=== PATIENT | male | born 1990 | race African-American/Black ===

== ENCOUNTER 2024-11-29 14:26 | Inpatient (IN) | payer OTHER ==
[2024-11-29 15:15] VITALS: BMI 31.9
[2024-11-29] MEDS ORDERED: POLYETHYLENE GLYCOL (HEALTHYLAX) 3350 17 GM PACKET PO PRN (15:44)
[2024-11-29] MEDS ORDERED: BENZOCAINE/MENTHOL (CHLORASEPTIC ) LOZENGE MM PRN (15:44)
[2024-11-29] MEDS ORDERED: NALOXONE (NARCAN) HCL 4 MG/0.1 ML SPRAY NS PRN (15:44)
[2024-11-29] MEDS ORDERED: MAGNESIUM HYDROX 2400MG/30ML ORAL SUSPENSION 30 ML CUP PO PRN (15:44)
[2024-11-29] MEDS ORDERED: LOPERAMIDE HCL 2 MG CAPSULE PO PRN (15:44)
[2024-11-29] MEDS ORDERED: BENZONATATE 200 MG CAPSULE PO PRN (15:44)
[2024-11-29] MEDS ORDERED: guaiFENesin 600 MG TABLET.ER (FP) PO PRN (15:44)
[2024-11-29] MEDS: INSULIN ASPART SLIDING SCALE (NOVOLOG) 1 VIAL SQ SCH (17:33)
[2024-11-29] MEDS: NICOTINE POLACRILEX 2 MG GUM BUC PRN (19:07)
[2024-11-29] MEDS ORDERED: TUBERCULIN PPD 5 TU/0.1ML VIAL ID ONE (19:10)
[2024-11-29] MEDS: hydrOXYzine PAMOATE 25 MG CAPSULE (FP) PO PRN (20:38)
[2024-11-29] MEDS: ACETAMINOPHEN 325 MG TABLET (FP) PO PRN (20:38)
[2024-11-29] MEDS: MELATONIN 5 MG TABLETS PO SCH (21:04)
[2024-11-29] MEDS: levETIRAcetam 500 MG TABLET (FP) PO SCH (21:04)
[2024-11-29] MEDS: APIXABAN 5 MG TABLET PO SCH (21:04)
[2024-11-29] MEDS: THIAMINE 100 MG TABLET PO SCH (21:04)
[2024-11-29] MEDS: INSULIN GLARGINE (LANTUS) 100 UNITS/ML UNITS SQ SCH (21:05)
[2024-11-30 01:48] LABS: URINE APPEARANCE CLEAR; URINE BILIRUBIN NEGATIVE (NEGATIVE); URINE COLOR YELLOW; URINE GLUCOSE (UA) NEGATIVE (NEGATIVE); URINE KETONE NEGATIVE (NEGATIVE); URINE LEUK ESTERASE NEGATIVE (NEGATIVE); URINE NITRITE NEGATIVE (NEGATIVE); URINE PROTEIN NEGATIVE (NEGATIVE); URINE UROBILINOGEN 0.2 mg/dL (0.2-1.0)
[2024-11-30] MEDS: HYDROXYUREA 500 MG CAPSULE PO SCH (09:39)
[2024-11-30] MEDS: LISINOPRIL 20 MG TABLET PO SCH (09:39)
[2024-11-30] MEDS: PRENATAL VITAMINS W/ FOLIC ACID TABLET (FP) PO SCH (09:39)
[2024-11-30] MEDS: DIVALPROEX SODIUM 500 MG TABLET E.C. PO SCH (09:39)
[2024-11-30] MEDS: BICTEGRAV/EMTRICIT/TENOFOV (BIKTARVY) 50-200-25 MG TABLET PO SCH (09:39)
[2024-11-30 10:03] LABS: HEMATOCRIT 35.6 % (40.1-51.0); HEMOGLOBIN 11.3 g/dL (13.7-17.5); MCHC 31.7 g/dl (32.3-36.5); MEAN CELL VOLUME 74.3 fl (79.0-92.2); PLATELET COUNT 241 x10^3/uL (163-337); RDW 20.2 % (12.0-15.6)
[2024-11-30 11:29] LABS: ALBUMIN 3.1 g/dl (3.4-5.0); BLOOD UREA NITROGEN 11.7 mg/dL (7-18); CALCIUM 9.1 mg/dL (8.5-10.1)
[2024-11-30 11:32] LABS: CREATININE 0.9 mg/dL (0.55-1.3)
[2024-11-30 11:33] LABS: BILIRUBIN,TOTAL 0.2 mg/dL (0.2-1); TOT PROT 6.8 g/dl (6.4-8.2)
[2024-11-30 11:49] LABS: HCV DIAGNOSTIC IN-HOUSE W/RFLX NON-REACTIVE (NONREACTIVE)
[2024-11-30 12:24] LABS: SYPHILIS W/ RPR CONF REACTIVE (NONREACTIVE)
[2024-11-30] MEDS: SERTRALINE HCL 25 MG TABLET (FP) PO SCH (14:14)
[2024-11-30] MEDS: risperiDONE 0.5 MG TABLET PO SCH (14:14)
[2024-11-30] MEDS: MAG HYDROX/AL HYDROX/SIMETH 30 ML UNIT-DOSE CUP PO PRN (14:15)
[2024-11-30] MEDS: diazePAM 5 MG TABLET PO ONE (20:12)
[2024-11-30] MEDS: busPIRone HCL 10 MG TABLET (FP) PO SCH (21:39)
[2024-11-30] MEDS: BENZTROPINE MESYLATE 0.5 MG TABLET (FP) PO SCH (21:39)
[2024-12-01 05:47] VITALS: RESP 16
[2024-12-01 17:45] VITALS: BP 133/79; PULSE 112; TEMP 97.3
== END 2024-12-01 18:20 | disposition left against medical advice (07) | DRG 770 ==
LOC: YASAS 14:26 → Y3W 17:09
PROVIDERS: ADMIT Psychiatry & Neurology Pain Medicine; ATTEND Psychiatry & Neurology Pain Medicine
PROC: HZ42ZZZ Group Counseling for Substance Abuse Treatment, Cognitive-Behavioral (ICD-10-PCS; principal; 2024-11-29)
DX: F10.10 Alcohol abuse, uncomplicated (principal); F17.210 Nicotine dependence, cigarettes, uncomplicated; F31.9 Bipolar disorder, unspecified; F41.9 Anxiety disorder, unspecified; F25.9 Schizoaffective disorder, unspecified; Z21 Asymptomatic human immunodeficiency virus [HIV] infection status; E10.9 Type 1 diabetes mellitus without complications; Z79.4 Long term (current) use of insulin; G40.909 Epilepsy, unspecified, not intractable, without status epilepticus; M32.9 Systemic lupus erythematosus, unspecified; D57.1 Sickle-cell disease without crisis; Z79.899 Other long term (current) drug therapy; Z62.810 Personal history of physical and sexual abuse in childhood; Z91.410 Personal history of adult physical and sexual abuse; Z63.0 Problems in relationship with spouse or partner; Z63.8 Other specified problems related to primary support group
CPT/HCPCS: 0241U-QW; 36415; 71046-TC-FY; 80048; 80053; 80305; 80307; 81003; 82746; 82962; 83735; 84484; 85025; 85027; 85610; 85730; 86593; 86780; 86803; 86850; 86900; 86901; 87389; 93005; 93010; 96361; 96365; 96375; 96376; 99285-25; G0378; J8999